=== PATIENT | female | born 1995 | race Caucasian/White ===

== ENCOUNTER 2021-10-20 10:53 | Emergency (ER) | payer BC ==
[~2021-10-20] VITALS: Ht 170.2 cm; Wt 54.4 kg
--- NOTE | 2021-10-20 10:56 | NUR ---
TO ER BED 9, BIB SELF C/O L FLANK PAIN FOR 1 WEEK MUCH WORSE 2 DAYS AGO, WAS SEEN AT URGENT CARE FOR THE SAME COMPLAINTS, AAOX3, BREATHING EVEN AND NON LABORED, CONNECTED TO MONITOR
[2021-10-20] MEDS ORDERED: IV NS 0.9% 1,000 ML BAG IV ONE (11:00)
[2021-10-20] MEDS ORDERED: ACETAMINOPHEN ES 500 MG TABLET PO ONE (11:00)
[2021-10-20] MEDS ORDERED: ACETAMINOPHEN ES 500 MG TABLET ONE (11:08)
--- NOTE | 2021-10-20 11:10 | NUR ---
SALINE LOCK ESTABLISHED, BLOOD DRAWN AND SENT TO LAB URINE COLLECTED AND PICKED UP BY LAB
[2021-10-20 11:25] LABS: BASOPHILS % (AUTO) 0.5 % (0.0-2.0); EOSINOPHILS % (AUTO) 6.1 % (0.0-6.0); HEMATOCRIT 44 % (33-45); HEMOGLOBIN 14.5 g/dL (11.5-14.8); LYMPHOCYTES # (AUTO) 1.3 K/uL (0.8-4.8); LYMPHOCYTES % (AUTO) 23.3 % (20.0-44.0); MEAN CORPUSCULAR HGB CONC 33 g/dl (31.0-36.0); MEAN CORPUSCULAR VOLUME 88 fL (82-100); MONOCYTES # (AUTO) 0.4 K/uL (0.1-1.30); NEUTROPHILS # (AUTO) 3.6 K/uL (1.8-8.9); NEUTROPHILS % (AUTO) 63.1 % (43.0-81.0); PLATELET COUNT (AUTO) 352 K/uL (150-450); RED BLOOD CELL COUNT(AUTO) 4.93 MIL/uL (4.0-5.2); WHITE BLOOD COUNT (AUTO) 5.6 K/uL (4.3-11.0)
[2021-10-20 11:27] LABS: BILIRUBIN,URINE NEGATIVE (NEGATIVE); COLOR,URINE YELLOW (YELLOW); LEUKOCYTE ESTERASE ,URINE MODERATE (NEGATIVE); NITRITE, URINE NEGATIVE (NEGATIVE); PROTEIN,URINE NEGATIVE (NEGATIVE); UGLUCOSE NEGATIVE (NEGATIVE); UROBILINOGEN,URINE 0.2 EU/dL (0.2)
[2021-10-20 11:50] LABS: ALBUMIN 3.8 g/dL (3.4-5.0); BILIRUBIN,DIRECT 0.1 mg/dL (0.0-0.2); BILIRUBIN,TOTAL 0.3 mg/dL (0.2-1.0); CREATININE 0.7 mg/dL (0.6-1.3); TOTAL PROTEIN, SERUM 7.8 g/dL (6.4-8.2)
[2021-10-20 12:07] LABS: BACTERIA,URINE MOD /HPF (None Seen); RBC,URINE 0-2 /HPF (0-2)
[2021-10-20 12:08] LABS: SQUAMOUS EPITHELIAL CELL,UR RARE /HPF (None Seen)
[2021-10-20 12:11] LABS: POTASSIUM 3.8 mmol/L (3.5-5.1)
[2021-10-20] MEDS ORDERED: KETOROLAC TROMETHAMINE INJ 30 MG/ML VIAL IV ONE (12:30)
[2021-10-20] MEDS ORDERED: KETOROLAC TROMETHAMINE 15 MG/ML VIAL ONE (12:33)
--- NOTE | 2021-10-20 12:38 | NUR ---
PRINTED CIRCUIT BOARD PANELS TRIMMER AT BEDSIDE
[2021-10-20] MEDS ORDERED: IBUP-1955 PO (13:22)
[2021-10-20] MEDS ORDERED: CYCL5TAB PO (13:22)
[2021-10-20] MEDS ORDERED: HYDR-4209 PO (13:24)
--- NOTE | 2021-10-20 13:32 | NUR ---
IV removed. Catheter intact and site benign. Pressure and 4x4 applied to site. No bleeding noted.Patient discharged to home in stable condition. Written and verbal after care instructions given. Patient verbalizes understanding of instruction.
[2021-10-20 13:33] VITALS: BP 105/87
== END 2021-10-20 13:33 | disposition home or self-care (01) ==
LOC: ER 10:53
DX: M94.0 Chondrocostal junction syndrome [Tietze] (principal); R07.81 Pleurodynia; Z88.5 Allergy status to narcotic agent; Z88.8 Allergy status to other drugs, medicaments and biological substances
CPT/HCPCS: 36415; 71045; 80048; 80076; 81001; 83690; 84703; 85025; 87086; 96361; 96374; 99284; J1885; J7030